=== PATIENT | male | born 1990 | race African-American/Black ===

== ENCOUNTER 2022-11-15 14:53 | Emergency (ER) | payer OTHER ==
[~2022-11-15] VITALS: Ht 175.3 cm; Wt 63.6 kg
[2022-11-15 15:15] VITALS: BP 108/65; PULSE 71; RESP 20; TEMP 99.2; O2SAT 100
[2022-11-15] MEDS ORDERED: ondansetron/PF 4mg/2ml inj IV ONE (16:30)
[2022-11-15] MEDS ORDERED: normal saline 1000ml 1,000 ML IV ONE (16:30)
[2022-11-15] MEDS ORDERED: famotidine/PF 10 mg/ml inj IV ONE (16:35)
[2022-11-15] MEDS ORDERED: ONDA4TAB12 PO (17:22)
[2022-11-15] MEDS ORDERED: FAMO20TA47 PO (17:22)
== END 2022-11-15 18:44 | disposition home or self-care (01) ==
LOC: ER 14:54
DX: K29.00 Acute gastritis without bleeding (principal)
CPT/HCPCS: 96361; 96374; 96375; 99284; J2405; J3490; J7030; 99285